=== PATIENT | female | born 1990 | race Hispanic/Latino ===

== ENCOUNTER 2023-12-12 19:29 | Emergency (ER) | payer SELFPAY ==
[~2023-12-12] VITALS: Ht 157.5 cm; Wt 83.0 kg
[2023-12-12 19:44] VITALS: PULSE 70; RESP 18; TEMP 97.7
[2023-12-12] MEDS ORDERED: IBUPROFEN200 MG PO (20:13)
[2023-12-12] MEDS ORDERED: TYLENOL325 MG PO (20:13)
[2023-12-12] MEDS ORDERED: ULTRAM 50MG50 MG PO (21:23)
[2023-12-12 21:26] VITALS: BP 112/69; PULSE 70; RESP 18; TEMP 97.7; O2SAT 99
== END 2023-12-12 21:26 | disposition home or self-care (01) ==
LOC: FSED 19:34
DX: S52.591A Other fractures of lower end of right radius, initial encounter for closed fracture (principal); Y04.0XXA Assault by unarmed brawl or fight, initial encounter; Y92.89 Other specified places as the place of occurrence of the external cause
CPT/HCPCS: 99283